=== PATIENT | female | born 1970 | race Caucasian/White ===

== ENCOUNTER → 2019-09-15 | Outpatient (CLI) | payer BC ==
--- NOTE | 2019-09-15 11:47 | Diagnostic Imaging Report ---
INDICATION: Right shoulder pain after bowling injury. COMPARISON: None available. TECHNIQUE: Two views of the right shoulder were obtained. FINDINGS: No fracture. Glenohumeral and acromioclavicular joints are normal in alignment. Subacromial space is preserved. No abnormal soft tissue mineralizations. IMPRESSION: Normal right shoulder radiographs. Dictated by: Dictated on workstation # [id number]
== END ==
LOC: RAD FS 11:16
PROVIDERS: ATTEND Nurse Practitioner Family
DX: S49.91XA Unspecified injury of right shoulder and upper arm, initial encounter (principal); Y93.54 Activity, bowling
CPT/HCPCS: 73030

== ENCOUNTER → 2020-08-13 | Emergency (ER) | payer BC ==
[~2020-08-13] VITALS: Ht 167.7 cm; Wt 110.5 kg
[~2020-08-13] MED LIST: PHEN-640 PO; PHENAZOPYRIDINE 100 MG (PYRIDIUM) TABLET PO ONE; SULF1TAB35 PO; TRIM/SULFAMETH 160/800 (SEPTRA DS) TAB PO ONE
[2020-08-13 21:49] VITALS: BP 112/82
[2020-08-13 22:07] LABS: CLARITY,URINE CLOUDY; COLOR,URINE DARK YELLOW; GLUCOSE, URINE (UA) NEGATIVE (NEGATIVE); PROTEIN,URINE 2+ (NEGATIVE)
[2020-08-13 22:08] LABS: BACTERIA,URINE LARGE /HPF; BILIRUBIN,URINE 2+ (NEGATIVE); KETONES,URINE 2+ (NEGATIVE); LEUKOCYTE ESTERASE ,URINE 2+ (NEGATIVE); NITRITE,URINE POSITIVE (NEGATIVE); RBC,URINE 0-2 /HPF; WBC,URINE 50-100 /HPF
--- NOTE | 2020-08-13 22:10 | ED GU-Female ---
General Chief Complaint: - Urinary Stated Complaint: LOWER BACK PAIN/BURNING ON URINATION Source: patient History of Present Illness Date Seen by Provider: Aug 13, 2020 Time Seen by Provider: 10:00 Initial Comments 50-year-old female presents with burning on urination for the past 3 days, associated low back discomfort. Denies fever, chills, abdominal pain, nausea or vomiting. History of UTIs in the past. Allergies and Home Medications Allergies Coded Allergies: No Known Drug Allergies (Unverified , 08/13/20) Patient Home Medication List Home Medication List Reviewed: Yes Review of Systems Review of Systems Constitutional: No chills, No fever, No malaise, No weakness Respiratory: no symptoms reported Cardiovascular: no symptoms reported Gastrointestinal: No abdominal pain, No nausea, No vomiting Genitourinary: burning, dysuria, frequency; denies hematuria; pain, urgency Musculoskeletal: back pain (b/l low back) Past [id number]-[id number]-Llaadz Hx Past Med/Social Hx: Reviewed Nursing Past Med/Soc Hx Patient Social History Recent Foreign Travel: No Contact w/Someone Who Travel: No Physical Exam Vital Signs Vital Signs - First Documented 08/13/20 21:49 Temp 37.7 Pulse 117 Resp 18 B/P (MAP) 112/82 (92) O2 Delivery Room Air Capillary Refill : Height, Weight, BMI Height: '" Weight: lbs. oz. kg; BMI Method: General Appearance: WD/WN, no apparent distress Gastrointestinal: non tender, soft, no organomegaly; No distended, No guarding, No rebound, No tenderness Back: no CVA tenderness, no vertebral tenderness Progress/Results/Core Measures Suspected Sepsis SIRS Temperature: Pulse: Respiratory Rate: Blood Pressure / Mean: Results/Orders Lab Results Laboratory Tests Test 08/13/20 21:50 Range/Units Urine Color DARK YELLOW Urine Clarity CLOUDY Urine pH 6.0 5-9 Urine Specific Ragland 1.025 H 1.016-1.022 Urine Protein 2+ H NEGATIVE Urine Glucose (UA) NEGATIVE NEGATIVE Urine Ketones 2+ H NEGATIVE Urine Nitrite POSITIVE H NEGATIVE Urine Bilirubin 2+ H NEGATIVE Urine Urobilinogen >=8.0 < = 1.0 MG/DL Urine Leukocyte Esterase 2+ H NEGATIVE Urine RBC (Auto) 3+ H NEGATIVE Urine RBC 0-2 /HPF Urine WBC 50-100 H /HPF Urine Squamous Epithelial Cells 2-5 /HPF Urine Crystals NONE /LPF Urine Bacteria LARGE H /HPF Urine Casts NONE /LPF Urine Mucus SMALL H /LPF Urine Culture Indicated YES My Orders Orders - JOSEE SILVER DO Urinalysis (08/13/20 21:45) Urine Culture (08/13/20 21:50) Vital Signs/I&O 08/13/20 21:49 Temp 37.7 Pulse 117 Resp 18 B/P (MAP) 112/82 (92) O2 Delivery Room Air Capillary Refill : Departure Impression Primary Impression: Urinary tract infection Qualified Codes: N30.01 - Acute cystitis with hematuria Disposition: HOME, SELF-CARE Condition: Stable Departure-Patient Inst. Decision time for Depature: 22:17 Referrals: [facility] (PCP) Primary Care Physician GARCÍA VILLAGRAN APRN (Family) Primary Care Physician Patient Instructions: Urinary Tract Infection, Adult (DC) Add. Discharge Instructions: Follow up with your PCP in 2-3 days if not improving, ER sooner if significantly worse. All discharge instructions reviewed with patient and/or family. Voiced understanding. Scripts Phenazopyridine HCl (Pyridium) 200 Mg Tablet 1 TAB PO TID for Discomfort, #6 Prov: JOSEE SILVER DO 08/13/20 Sulfamethoxazole/Trimethoprim (Bactrim Ds Tablet) 1 Each Tablet 1 EACH PO BID for 7 Days, #14 TAB Prov: JOSEE SILVER DO 08/13/20 JOSEE SILVER DO Aug 13, 2020 22:09
== END ==
LOC: EDUNIT# 21:42 → ER FS 21:46
DX: N39.0 Urinary tract infection, site not specified (principal)
CPT/HCPCS: 81000; 87077; 87088; 87186; 99283